=== PATIENT | female | born 1955 ===

== ENCOUNTER 2017-12-20 11:04 | Emergency (ER) | payer OTHER ==
[2017-12-20 11:15] VITALS: PULSE 77; RESP 16; TEMP 98.3; BMI 30.6
[2017-12-20] MEDS ORDERED: Sodium Chloride 0.9% 1,000 ML IV STA (11:25)
--- NOTE | 2017-12-20 11:28 | ED PDOC ---
HPI: General Adult Time Seen by Provider: 12/20/17 11:19 History Per: Patient Onset/Duration Of Symptoms: Days (2) Current Symptoms Are (Timing): Intermittent Episodes Severity: Mild Additional Complaint(s): Intermittent episodes of lightheadedness x 2 days. H/o DM and HTN and both have been elevated despite taking meds. Denies chest pain SOB or headache. Denies NVD Past Medical History Vital Signs: Last Vital Signs Temp 98.3 F 12/20/17 11:14 Pulse 77 12/20/17 11:14 Resp 16 12/20/17 11:14 BP 165/92 H 12/20/17 11:14 Pulse Ox 100 12/20/17 11:27 - Medical History PMH: Diabetes, HTN - Surgical History Surgical History: Appendectomy - Family History Family History: States: Unknown Family Hx - Home Medications Home Medications: Ambulatory Orders Medication Instructions Recorded Nitrofurantoin Macrocrystals 100 mg PO BID #14 cap 07/06/15 [Macrobid] oxyCODONE/Acetaminophen [Percocet 1 tab PO Q6H PRN #5 tab 07/06/15 5/325 mg Tab] - Allergies Allergies/Adverse Reactions: Allergies Allergy/AdvReac Type Severity Reaction Status Date / Time No Known Allergies Allergy Verified 12/20/17 11:32 Review of Systems ROS Statement: Except As Marked, All Systems Reviewed And Found Negative Neurological: Positive for: Dizziness Physical Exam - Reviewed Nursing Documentation Reviewed: Yes Vital Signs Reviewed: Yes - Physical Exam Appears: Positive for: Non-toxic, No Acute Distress Head Exam: Positive for: ATRAUMATIC, NORMAL INSPECTION, NORMOCEPHALIC Skin: Positive for: Normal Color, Warm, DRY Eye Exam: Positive for: EOMI, Normal appearance, PERRL ENT: Positive for: Normal ENT Inspection Neck: Positive for: Normal, Painless ROM Cardiovascular/Chest: Positive for: Regular Rate, Rhythm Respiratory: Positive for: CNT, Normal Breath Sounds Gastrointestinal/Abdominal: Positive for: Normal Exam, Soft Back: Positive for: Normal Inspection Extremity: Positive for: Normal ROM Neurologic/Psych: Positive for: Alert, Oriented - Laboratory Results Result Diagrams: 12/20/17 12:00 12/20/17 12:00 - ECG O2 Sat by Pulse Oximetry: 100 Disposition - Clinical Impression Clinical Impression: Hyperglycemia - Patient ED Disposition Is Patient to be Admitted: No Counseled Patient/Family Regarding: Studies Performed, Diagnosis, Need For Followup - Disposition Referrals: [facility] [place] [Outside] Disposition: Routine/Home Disposition Time: 14:23 Condition: FAIR Instructions: Hyperglycemia, Adult Print Language: UPPER SORBIAN
[2017-12-20 12:11] LABS: BASO % 0.5 % (0.0-2.0); EOS # 0.1 K/uL (0.0-0.7); EOS % 2.2 % (0.0-4.0); HEMOGLOBIN 12.4 g/dL (12.0-16.0); LYMPH # 2.4 K/uL (1.0-4.3); LYMPH % 43.7 % (20.0-40.0); MEAN CELL VOLUME 80.3 fl (81.0-99.0); MEAN CORPUSCULAR HEMOGLOBIN 26.5 pg (27.0-31.0); MEAN PLATELET VOLUME 8.6 fl (7.2-11.7); MONO # 0.6 K/uL (0.0-0.8); MONO % 10.4 % (0.0-10.0); NEUT # 2.4 K/uL (1.8-7.0); NEUT % 43.2 % (50.0-75.0); NRBC % 0.1 % (0.0-0.0); RBC 4.68 Mil/uL (3.80-5.20); RED CELL DISTRIBUTION WIDTH 13.9 % (11.5-14.5); WHITE BLOOD COUNT 5.5 K/uL (4.8-10.8)
[2017-12-20 12:19] LABS: ALB/GLOB RATIO 1.1 (1.0-2.1); ALBUMIN 4.4 g/dL (3.5-5.0); ALT/SGPT 98 U/L (9-52); AST/SGOT 60 U/L (14-36); BLOOD UREA NITROGEN 16 mg/dl (7-17); CALCIUM 10.1 mg/dL (8.4-10.2); GFR AFRICAN-AMERICAN > 60; GFR NON-AFRICAN AMERICAN > 60
[2017-12-20] MEDS ORDERED: Insulin Regular 100 units/ml SC STA (12:22)
[2017-12-20 14:38] VITALS: BP 156/88; O2SAT 98
== END 2017-12-20 14:39 | disposition home or self-care (01) ==
LOC: H.ER 11:04
DX: E11.65 Type 2 diabetes mellitus with hyperglycemia (principal); I10 Essential (primary) hypertension
CPT/HCPCS: 80053; 82948; 85025; 99283; J7030